=== PATIENT | male | born 1970 | race Hispanic/Latino ===

== ENCOUNTER 2016-12-07 08:06 | Inpatient (IN) | payer MEDICAID ==
[2016-12-07 09:30] LABS: BASO # 0.1 K/uL (0.0-0.2); BASO % 0.9 % (0.0-2.0); EOS # 0.3 K/uL (0.0-0.7); EOS % 3.7 % (0.0-4.0); HEMATOCRIT 39.9 % (35.0-51.0); LYMPH # 1.8 K/uL (1.0-4.3); LYMPH % 24.2 % (20.0-40.0); MEAN CELL VOLUME 97.2 fL (80.0-94.0); MEAN CORPUSCULAR HEMOGLOBIN 33.5 pg (27.0-31.0); MEAN CORPUSCULAR HGB CONC 34.5 g/dL (33.0-37.0); MEAN PLATELET VOLUME 7.5 fL (7.2-11.7); MONO # 0.6 K/uL (0.0-0.8); MONO % 8.9 % (0.0-10.0); RED CELL DISTRIBUTION WIDTH 13.6 % (11.5-14.5); WHITE BLOOD COUNT 7.3 K/uL (4.8-10.8)
[2016-12-07 09:34] LABS: CHLORIDE 101 mmol/L (98-107); POTASSIUM 4.4 mmol/L (3.6-5.2); SODIUM 140 mmol/L (132-148)
[2016-12-07 09:34] LABS: RBC URINE 6 /hpf (0-3); URINE BILIRUBIN 1+ (NEGATIVE); URINE BLOOD NEGATIVE (NEGATIVE); URINE COLOR Amber (YELLOW); URINE GLUCOSE (UA) NORMAL (Normal); URINE KETONE TRACE mg/dL (NEGATIVE); URINE LEUKOCYTE ESTERASE NEG Leu/uL (Negative); URINE PROTEIN 1+ mg/dL (NEGATIVE); WBC URINE < 1 /hpf (0-5)
[2016-12-07 09:36] LABS: ALB/GLOB RATIO 1.3 (1.0-2.1); AST/SGOT 33 U/L (17-59); BILIRUBIN,TOTAL 0.9 mg/dL (0.2-1.3); CARBON DIOXIDE 24 mmol/L (22-30); GFR AFRICAN-AMERICAN > 60; TOTAL PROTEIN 7.1 g/dL (6.3-8.3)
[2016-12-07 09:37] LABS: ALKALINE PHOSPHATASE 50 U/L (38-126); ALT/SGPT 54 U/L (21-72); BLOOD UREA NITROGEN 11 mg/dL (9-20); CALCIUM 8.9 mg/dl (8.6-10.4); GLUCOSE,RANDOM 84 mg/dL (75-110)
[2016-12-07 09:38] LABS: INR 1.1
--- NOTE | 2016-12-07 10:39 | C.PDOC ---
History Of Present Illness 46 y/o male with Hx of DVT presents to ed with complaints of "deep" pain to calf of left leg since yesterday morning. Patient states x3 years ago he had DVT to same leg and was on Coumadin but was taken off and denies currently taking blood thinners. Patient denies SOB/Chest pain, recent injury, numbness, weakness or any other complaints at this time. Chief Complaint (Nursing): Lower Extremity Problem/Injury History Per: Patient History/Exam Limitations: no limitations Onset/Duration Of Symptoms: Days Current Symptoms Are (Timing): Still Present Past Medical History Reviewed: Historical Data, Nursing Documentation, Vital Signs Vital Signs: Last Vital Signs Temp 98.4 F 12/07/16 16:00 Pulse 72 12/07/16 16:00 Resp 20 12/07/16 16:00 BP 103/65 12/07/16 16:00 Pulse Ox 96 12/07/16 16:00 - Medical History PMH: No Chronic Diseases, Depression, Deep Vein Thrombosis Surgical History: No Surg Hx Family History: States: No Known Family Hx - Social History Hx Alcohol Use: No Hx Substance Use: No - Immunization History Hx Tetanus Toxoid Vaccination: No Hx Influenza Vaccination: No Hx Pneumococcal Vaccination: No Review Of Systems Except As Marked, All Systems Reviewed And Found Negative. Constitutional: Negative for: Fever, Chills Musculoskeletal: Positive for: Leg Pain. Negative for: Foot Pain Skin: Negative for: Rash Neurological: Negative for: Weakness, Numbness Physical Exam - Physical Exam Appears: Non-toxic, No Acute Distress Skin: Warm, Dry, No Rash Head: Atraumatic, Normacephalic Oral Mucosa: Moist Neck: Normal ROM, Supple Chest: Symmetrical Cardiovascular: Rhythm Regular, No Edema Respiratory: Normal Breath Sounds, No Accessory Muscle Use Gastrointestinal/Abdominal: Soft, No Tenderness Extremity: Calf Tenderness (left), Capillary Refill (<2 seconds), No Deformity, Swelling (mild, left), Other (Varicose veins to lower extremities) Extremity: Bilateral: Normal ROM Pulses: Left Dorsalis Pedis: Normal, Right Dorsalis Pedis: Normal Neurological/Psych: Oriented x3, Normal Speech, Normal Cognition, Normal Motor, Normal Sensation ED Course And Treatment - Laboratory Results Result Diagrams: 12/07/16 09:22 12/07/16 09:22 O2 Sat by Pulse Oximetry: 99 (RA) Pulse Ox Interpretation: Normal Progress Note: Blood work, UA, Duplex to r/o DVT positive for Left distal femoral and popliteal DVT. Heparin bolus and heparin drip ordered. Case was d/w who accepted patient to his service for admission. Disposition - Disposition Disposition: HOSPITALIZED Disposition Time: 12:06 Condition: FAIR - Clinical Impression Clinical Impression: Deep venous thrombosis of lower extremity - PA / TECHNICAL ADMINISTRATOR / Resident Statement MD/DO has reviewed & agrees with the documentation as recorded. - Scribe Statement The provider has reviewed the documentation as recorded by the Palibleonel Luciano All medical record entries made by the Ryan were at my direction and personally dictated by me. I have reviewed the chart and agree that the record accurately reflects my personal performance of the history, physical exam, medical decision making, and the department course for this patient. I have also personally directed, reviewed, and agree with the discharge instructions and disposition. Decision To Admit - Pt Status Changed To: Hospital Disposition Of: Inpatient - Admit Certification Admit to Inpatient:: After my assessment, the patient will require hospitalization for at least two midnights. This is because of the severity of symptoms shown, intensity of services needed, and/or the medical risk in this patient being treated as an outpatient. - InPatient: Physician Admission Certification: I certify that this patient requires 2 or more midnights of care for the following reason:: Patient needs more than 2 days of anticioagulation - . Bed Request Type: Regular Admitting Physician: Annita Todd Patient Diagnosis: Deep venous thrombosis of lower extremity
[2016-12-07] MEDS ORDERED: Heparin 25,000units in D5W 250 ML IV ONE (10:54)
[2016-12-07] MEDS ORDERED: Heparin25000 units/250ml 1/2NS 25,000 UNITS/250 ML BAG IV ONE (11:30)
--- NOTE | 2016-12-07 13:47 | VASCLAB ---
PROCEDURE: Lower Extremity Venous Duplex Exam. HISTORY: Left leg pain, calf tenderness PRIORS: None. TECHNIQUE: Bilateral common femoral, femoral, popliteal and posterior tibial, peroneal and great saphenous veins were evaluated. Flow was assessed with color Doppler, compressibility, assessment of phasic flow and augmentation response. Report prepared by JERI Schofield FINDINGS: RIGHT: 1. Common Femoral Vein: 1.1. Compressibility - Fully compressible: Thrombus - None : Flow - Phasic: Augmentation -Normal: Reflux - None. 2. Femoral Vein: 2.1. Compressibility - Fully compressible: Thrombus - None : Flow - Phasic: Augmentation -Normal: Reflux - None. 3. Popliteal Vein: 3.1. Compressibility - Fully compressible: Thrombus - None : Flow - Phasic: Augmentation -Normal: Reflux - None. 4. Posterior Tibial Vein: 4.1. Compressibility - Fully compressible: Thrombus - None: Flow - Phasic: Augmentation -Normal: Reflux - None. 5. Peroneal Vein: 5.1. Compressibility - Fully compressible: Thrombus - None: Flow - Phasic: Augmentation -Normal: Reflux - None. 6. Great Saphenous Vein: 6.1. Compressibility - Fully compressible: Thrombus - None: Flow - Phasic: Augmentation - Normal: Reflux - None. LEFT: 1. Common Femoral Vein: 1.1. Compressibility - Fully compressible: Thrombus - None: Flow - Phasic: Augmentation -Normal: Reflux - None. 2. Femoral Vein: (non compressible at the distal segment only) 2.1. Compressibility - Incompressible: Thrombus - Acute: Flow - Absent : Augmentation -None: Reflux - None. 3. Popliteal Vein: 3.1. Compressibility - Incompressible: Thrombus - Acute : Flow - Absent : Augmentation -None: Reflux - None. 4. Posterior Tibial Vein: 4.1. Compressibility - Fully compressible: Thrombus - None: Flow - Phasic: Augmentation -Normal: Reflux - None. 5. Peroneal Vein: 5.1. Compressibility - Fully compressible: Thrombus - None: Flow - Phasic: Augmentation -Normal: Reflux - None. 6. Great Saphenous Vein: 6.1. Compressibility - Fully compressible: Thrombus - None: Flow - Phasic: Augmentation - Normal: Reflux - None. OTHER FINDINGS: One of the left gastrocnemius veins, was non compressible. IMPRESSION: Right: No evidence of deep or superficial vein thrombosis of the right lower extremity. Normal valve function noted of the right side. Left: Acute deep vein thrombosis of the left distal femoral, one gastrocnemius and the popliteal veins, with severe reduction of the venous return.
--- NOTE | 2016-12-07 14:04 | CP.PCM.HP ---
History of Present Illness - History of Present Illness History of Present Illness: COMPREHENSIVE HISTORY & PHYSICAL EXAM HPI 46 y/o male with Hx of DVT presents to ed with complaints of "deep" pain to half of left leg since yesterday morning. Patient states x3 years ago he had DVT to same leg and was on Coumadin but was taken off and denies currently taking blood thinners. Patient denies recent injury, numbness, weakness or any other complaints at this time. PAST HIST. PERSONAL HIST: Smoking. N Alcohol. N Allergy N Travel_- . FAMILY HIST : ROS : Constitutional: Negative for weight change, chills, night sweats, fatigue and usage of assist device. Eyes: Negative for redness, swelling, itching, discharge, vision changes, blurry vision, double vision, glaucoma, cataracts, Ears: Negative for hearing loss, ringing, , tinnitus, vertigo Nose: Negative for rhinorrhea, stuffiness, sniffing, itching, postnasal drip, discoloration, nasal congestion and epistaxis. Throat: Negative for throat clearing, sore throat, hoarseness, difficulty swallowing and difficulty speaking. Respiratory: Negative for cough, , sputum production, chest tightness, wheezing, pleuritic chest pain ,daytime somnolence, chronic cough, hemoptysis, snoring at night, Cardiovascular: Negative for chest pain, palpitations, orthopnea, PND, Edema of legs, leg cramps, angina, claudication, , irregular heartbeat, Neurology: Negative for irritability, muscle weakness, numbness and tingling, seizures, tremors, migraines, slurred speech, syncope, memory loss, mood changes , recurrent headaches Gastrointestinal: Negative for difficulty swallowing, diarrhea, constipation, black stools, rectal bleeding, nausea, flatulence, reflux, poor appetite, changes in bowel habits, abdominal pain Genitourinary: Negative for frequent urination, hematuria, discharge, incontinence, urinary retention, frequent UTI, Psychiatric: Negative for depression, anxiety/panic, suicidal tendencies, Musculoskeletal: Negative for swollen joints, back pain, , neck pain, morning stiffness of joints, . Skin: Negative for rash, ulcers, itching, dry skin and pigmented lesions. P/E: Constitutional: Appears stated age and in no apparent distress. Head: Normocephalic. Ears: External ear canals patent without inflammation. Tympanic membranes intact with normal light reflex and landmark. Eyes: Pupils are central, bilaterally equal, symmetrical and reacts to light with normal movements and no icterus or pallor. Nose: External nares are patent. Mucosa is pink Mouth-Throat: Good general appearance and condition. No post-pharyngeal/oropharyngeal erythema and tonsillar hypertrophy. Good dental hygiene. Neck-Lymphatic: Neck is supple with normal ROM, no thyromegaly, lymph nodes or masses. JVD is normal with no carotid bruit. Lungs: Clear to percussion and auscultation with bilateral normal air entry. Cardiovascular: S1 and S2 are normal with no murmurs, gallops and rub. GI Exam: No hepatomegaly. Abdomen is soft and non-tender. No Organomegaly , masses or hernias are evident and bowel sounds are normal and active. Neurology: Higher function and all cranial nerves intact, with no gross motor or sensory deficit. Superficial and deep reflexes are normal with downwards planters. No cerebellar deficit with normal gait. Musculoskeletal: No tender spots with normal curvature of the spine with no swelling or restricted ROM of the small and large joints. Extremities: Homans sign absent.pos with calf tenderness Skin: No rash, eruptions or abnormal skin pigmentation LAB/RADIOLOGY: ASSESMENT : LEFT LEG RECURRENT DVT PLAN: IV HEPARIN AND COUMADIN Present on Admission - Present on Admission Any Indicators Present on Admission: No History of DVT/PE: Yes History of Uncontrolled Diabetes: No Urinary Catheter: No Decubitus Ulcer Present: No Past Patient History - Past Social History Smoking Status: Heavy Smoker > 10 Cigarettes Daily - CARDIAC Hx Peripheral Vascular Disease: Yes - PSYCHIATRIC Hx Depression: Yes Hx Substance Use: No - SURGICAL HISTORY Hx Surgeries: Yes Hx Orthopedic Surgery: Yes (right knee) - ANESTHESIA Hx Anesthesia: Yes Hx Anesthesia Reactions: No Meds Allergies/Adverse Reactions: Allergies Allergy/AdvReac Type Severity Reaction Status Date / Time No Known Allergies Allergy Verified 12/07/16 08:31 Results - Vital Signs Recent Vital Signs: Last Vital Signs Temp 97.7 F 12/07/16 12:26 Pulse 66 12/07/16 12:26 Resp 20 12/07/16 12:26 BP 101/65 12/07/16 12:26 Pulse Ox 97 12/07/16 12:26 - Labs Result Diagrams: 12/07/16 09:22 12/07/16 09:22 Labs: Laboratory Results - last 24 hr 12/07/16 12/07/16 12/07/16 09:22 09:22 09:22 WBC 7.3 RBC 4.10 L Hgb 13.7 Hct 39.9 MCV 97.2 H MCH 33.5 H MCHC 34.5 RDW 13.6 Plt Count 197 MPV 7.5 Neut % (Auto) 62.3 Lymph % (Auto) 24.2 [place] % (Auto) 8.9 Eos % (Auto) 3.7 Baso % (Auto) 0.9 Neut # 4.5 Lymph # 1.8 Sandoval # 0.6 Eos # 0.3 Baso # 0.1 PT 12.1 INR 1.1 APTT 28 Sodium 140 Potassium 4.4 Chloride 101 Carbon Dioxide 24 Anion Gap 19 BUN 11 Creatinine 0.9 Est GFR ( Amer) > 60 Est GFR (Non-Af Amer) > 60 Random Glucose 84 Calcium 8.9 Total Bilirubin 0.9 AST 33 ALT 54 Alkaline Phosphatase 50 Total Protein 7.1 Albumin 4.0 Globulin 3.1 Albumin/Globulin Ratio 1.3 Urine Color Urine Clarity Urine pH Ur Specific [place] Urine Protein Urine Glucose (UA) Urine Ketones Urine Blood Urine Nitrate Urine Bilirubin Urine Urobilinogen Ur Leukocyte Esterase Urine WBC (Auto) Urine RBC (Auto) 12/07/16 09:26 WBC RBC Hgb Hct MCV MCH MCHC RDW Plt Count MPV Neut % (Auto) Lymph % (Auto) [place] % (Auto) Eos % (Auto) Baso % (Auto) Neut # Lymph # [place] # Eos # Baso # PT INR APTT Sodium Potassium Chloride Carbon Dioxide Anion Gap BUN Creatinine Est GFR ( Amer) Est GFR (Non-Af Amer) Random Glucose Calcium Total Bilirubin AST ALT Alkaline Phosphatase Total Protein Albumin Globulin Albumin/Globulin Ratio Urine Color Vivian Urine Clarity Clear Urine pH 5.0 Ur Specific [place] 1.032 H Urine Protein 1+ H Urine Glucose (UA) Normal Urine Ketones Trace Urine Blood Negative Urine Nitrate Negative Urine Bilirubin 1+ H Urine Urobilinogen 4.0 Ur Leukocyte Esterase Neg Urine WBC (Auto) < 1 Urine RBC (Auto) 6 H
[2016-12-08] MEDS: Heparin25000 units/250ml 1/2NS 25,000 UNITS/250 ML BAG IV PRN ×2 (04:46→19:02)
[2016-12-08 09:15] LABS: HEMATOCRIT 40.9 % (35.0-51.0); MEAN CELL VOLUME 97.7 fL (80.0-94.0); MEAN CORPUSCULAR HEMOGLOBIN 33.7 pg (27.0-31.0); MEAN CORPUSCULAR HGB CONC 34.5 g/dL (33.0-37.0); MEAN PLATELET VOLUME 7.4 fL (7.2-11.7); RED CELL DISTRIBUTION WIDTH 13.6 % (11.5-14.5); WHITE BLOOD COUNT 6.8 K/uL (4.8-10.8)
--- NOTE | 2016-12-08 10:43 | CP.PCM.CON ---
<ErnstmaximeElvi TalhaPrincess - Last Filed: 12/08/16 12:11> History of Present Illness - History of Present Illness History of Present Illness: Patient is a 46 year old male with past medical history of DVT and depression, presents to the ED yesterday with deep pain in the left calf for 3 days. He reports he has not been bedridden, traveling, or any change in his regular schedule. Patient reports he had a DVT in the left calf 4-5 years ago and was treated with Coumadin for several months. He reports the current pain feels similar to the pain he had with the DVT years ago. Patient denies having any hematologic disorders. Patient denies having chest pain, abdominal pain, nausea , vomiting, diarrhea, and fevers. PMD: Dr. Darnell PMHx: DVT (4-5 years ago), Depression SurgHx: right knee arthroscopic surgery 2009 Heme: denies personal and family history of hematologic disorders FamHx: denies SocHx: Smokes 1 ppd for 20+ years; former heavy alcohol abusers (quit 08/2016); denies drug uses; not currently employed. Allergies: NKDA Medication: Latuda Review of Systems - Constitutional Constitutional: absent: Headache - EENT Ears: absent: Dizziness - Cardiovascular Cardiovascular: absent: Chest Pain, Dyspnea, Lightheadedness - Respiratory Respiratory: absent: Cough, Dyspnea - Gastrointestinal Gastrointestinal: absent: Abdominal Pain, Constipation, Diarrhea, Nausea, Vomiting - Musculoskeletal Additional comments: Left calf pain and tenderness. - Neurological Neurological: absent: Dizziness Past Patient History - Past Medical History & Family History Past Medical History?: Yes - Past Social History Smoking Status: Heavy Smoker > 10 Cigarettes Daily - CARDIAC Hx Peripheral Vascular Disease: Yes - MUSCULOSKELETAL/RHEUMATOLOGICAL Hx Falls: No - PSYCHIATRIC Hx Depression: Yes Hx Substance Use: No - SURGICAL HISTORY Hx Surgeries: Yes Hx Orthopedic Surgery: Yes (right knee) - ANESTHESIA Hx Anesthesia: Yes Hx Anesthesia Reactions: No Meds Allergies/Adverse Reactions: Allergies Allergy/AdvReac Type Severity Reaction Status Date / Time No Known Allergies Allergy Verified 12/07/16 08:31 - Medications Medications: Current Medications Acetaminophen (Tylenol 325mg Tab) 650 mg PO Q6 PRN PRN Reason: Pain, moderate (4-7) Last Admin: 12/08/16 08:22 Dose: 650 mg Heparin Sodium/Sodium Chloride (Heparin 67690 Units/250ml 1/2 Normal Saline) 25 ,000 units in 250 mls @ 18.779 mls/hr IV .[id number] PRN; Protocol; 18 UNITS/KG/HR PRN Reason: ADJUST RATE PER PROTOCOL Last Admin: 12/08/16 04:46 Dose: 18 units/kg/hr, 18.779 mls/hr Physical Exam - Head Exam Head Exam: ATRAUMATIC, NORMAL INSPECTION - Eye Exam Eye Exam: EOMI - ENT Exam ENT Exam: Mucous Membranes Moist - Respiratory Exam Respiratory Exam: Clear to Auscultation Bilateral, NORMAL BREATHING PATTERN. absent: Rhonchi, Wheezes, Respiratory Distress - Cardiovascular Exam Cardiovascular Exam: REGULAR RHYTHM, +S1, +S2 - GI/Abdominal Exam GI & Abdominal Exam: Normal Bowel Sounds, Soft. absent: Tenderness - Extremities Exam Extremities exam: Positive for: calf tenderness (Left LE), tenderness (Left LE) , pedal pulses present. Negative for: pedal edema - Neurological Exam Neurological exam: Alert, Oriented x3 - Psychiatric Exam Psychiatric exam: Normal Affect, Normal Mood - Skin Skin Exam: Dry, Intact, Normal Color, Warm Results - Vital Signs Recent Vital Signs: Last Vital Signs Temp 98 F 12/08/16 07:14 Pulse 69 12/08/16 07:14 Resp 21 12/08/16 07:14 BP 100/66 12/08/16 07:14 Pulse Ox 97 12/08/16 07:14 - Labs Result Diagrams: 12/08/16 09:10 12/07/16 09:22 Labs: Laboratory Results - last 24 hr 12/07/16 12/08/16 12/08/16 20:03 02:42 09:10 WBC 6.8 RBC 4.19 L Hgb 14.1 Hct 40.9 MCV 97.7 H MCH 33.7 H MCHC 34.5 RDW 13.6 Plt Count 204 MPV 7.4 APTT 80 H D 76 H 12/08/16 09:10 WBC RBC Hgb Hct MCV MCH MCHC RDW Plt Count MPV APTT 59 H D Assessment & Plan (1) Deep venous thrombosis of lower extremity Assessment and Plan: Inherited thrombophilia workup, follow up results. Continue therapeutic anticoagulation. Status: Acute (2) Tobacco abuse Assessment and Plan: Smoking cessation discussed at length. Status: Acute <Delvin Turpin - Last Filed: 12/12/16 19:33> Meds - Medications Medications: Current Medications Acetaminophen (Tylenol 325mg Tab) 650 mg PO Q6 PRN PRN Reason: Pain, moderate (4-7) Last Admin: 12/09/16 06:28 Dose: 650 mg Heparin Sodium/Sodium Chloride (Heparin 91053 Units/250ml 1/2 Normal Saline) 25 ,000 units in 250 mls @ 18.779 mls/hr IV .[id number] PRN; Protocol; 18 UNITS/KG/HR PRN Reason: PROTOCOL Last Admin: 12/12/16 18:20 Dose: 18 units/kg/hr, 18.779 mls/hr Results - Vital Signs Recent Vital Signs: Last Vital Signs Temp 97.5 F L 12/12/16 15:10 Pulse 66 12/12/16 15:10 Resp 20 12/12/16 15:10 BP 103/70 12/12/16 15:10 Pulse Ox 97 12/12/16 15:10 - Labs Result Diagrams: 12/09/16 08:17 12/07/16 09:22 Labs: Laboratory Results - last 24 hr 12/12/16 06:14 PT 13.1 H INR 1.2 Assessment & Plan - Assessment and Plan (Free Text) Assessment: Pt seen and examined, agree with residents consult. Pt admitted with unprovoked LLE DVT. He has a history of unprovoked DVT in the past that was treated with 6 months of anticoagulation. Given his age, I will plan to send off an inherited thrombophilia w/u. He should remain on therapeutic anticoagulation for life. Thank you for this interesting consult.
--- NOTE | 2016-12-08 11:08 | CARD ---
APPROVED REPORT EXAM: Two-dimensional and M-mode echocardiogram with Doppler and color Doppler. Other Information Quality : GoodRhythm : NSR RISK FACTORS Smoking 2D DIMENSIONS IVSd0.9 (0.7-1.1cm)LVDd5.6 (3.9-5.9cm) PWd0.9 (0.7-1.1cm)LVDs3.7 (2.5-4.0cm) FS (%) 33.5 %LVEF (%)61.6 (>50%) M-Mode DIMENSIONS Left Atrium (MM)3.93 (2.5-4.0cm)Aortic Root4.16 (2.2-3.7cm) Aortic Cusp Exc.2.82 (1.5-2.0cm) Mitral Valve MV E Ycwuftrg91.2cm/sMV A Qryywnbg86.0cm/sE/A ratio0.9 TDI E/Lateral E'0.0E/Medial E'0.0 Tricuspid Valve TR Peak Zptwcipa131hd/sTR Peak Gr.25obRzHQQQ70enLb LEFT VENTRICLE The left ventricle is normal size. There is normal left ventricular wall thickness. The left ventricular function is normal. The left ventricular ejection fraction is within the normal range. No regional wall motion abnormalities noted. The left ventricular diastolic function is normal. No left ventricle thrombus noted on this study. There is no ventricular septal defect visualized. There is no left ventricular aneurysm. There is no mass noted in the left ventricle. RIGHT VENTRICLE The right ventricle is normal size. There is normal right ventricular wall thickness. The right ventricular systolic function is normal. ATRIA The left atrium size is normal. The right atrium size is normal. The interatrial septum is intact with no evidence for an atrial septal defect. AORTIC VALVE The aortic valve is normal in structure and function. No aortic regurgitation is present. There is no aortic valvular stenosis. There is no aortic valvular vegetation. MITRAL VALVE The mitral valve is normal in structure and function. There is no evidence of mitral valve prolapse. There is no mitral valve stenosis. Mitral regurgitation is mild. TRICUSPID VALVE The tricuspid valve is normal in structure and function. There is mild tricuspid regurgitation. Right ventricular systolic pressure is estimated at 30-40 mmHg. There is no tricuspid valve prolapse or vegetation. There is no tricuspid valve stenosis. PULMONIC VALVE The pulmonary valve is normal in structure and function. There is no pulmonic valvular regurgitation. There is no pulmonic valvular stenosis. GREAT VESSELS The aortic root is normal in size. The ascending aorta is normal in size. The pulmonary artery is normal. The IVC is normal in size and collapses >50% with inspiration. PERICARDIAL EFFUSION The pericardium appears normal. There is no pleural effusion. <Conclusion> The left ventricular function is normal. The left ventricular ejection fraction is within the normal range. No regional wall motion abnormalities noted. Mitral regurgitation is mild. There is mild tricuspid regurgitation. Right ventricular systolic pressure is estimated at 30-40 mmHg.
--- NOTE | 2016-12-08 13:36 | CP.PCM.PN ---
Subjective - Date & Time of Evaluation Date of Evaluation: 12/08/16 Time of Evaluation: 13:35 - Subjective Subjective: PAIN LEFT CALF VS STABLE O/E LEFT CALF SWOLLEN WITH POS BHARATHI'S SIGN ECHO MILD PTH CONT IV HEPARIN Objective - Vital Signs/Intake and Output Vital Signs (last 24 hours): Temp Pulse Resp BP Pulse Ox 98 F 69 21 100/66 97 12/08/16 07:14 12/08/16 07:14 12/08/16 07:14 12/08/16 07:14 12/08/16 07:14 Intake and Output: 12/08/16 12/08/16 11:59 23:59 Intake Total 331.6 Output Total 800 Balance -468.4 - Medications Medications: Current Medications Acetaminophen (Tylenol 325mg Tab) 650 mg PO Q6 PRN PRN Reason: Pain, moderate (4-7) Last Admin: 12/08/16 08:22 Dose: 650 mg Heparin Sodium/Sodium Chloride (Heparin 43445 Units/250ml 1/2 Normal Saline) 25 ,000 units in 250 mls @ 18.779 mls/hr IV .[id number] PRN; Protocol; 18 UNITS/KG/HR PRN Reason: ADJUST RATE PER PROTOCOL Last Admin: 12/08/16 04:46 Dose: 18 units/kg/hr, 18.779 mls/hr - Labs Labs: 12/08/16 09:10 12/07/16 09:22 PT 12.1 SECONDS (9.7-12.2) 12/07/16 09:22 INR 1.1 12/07/16 09:22 APTT 59 SECONDS (21-34) H D 12/08/16 09:10
[2016-12-09 08:42] LABS: BASO # 0.1 K/uL (0.0-0.2); EOS # 0.2 K/uL (0.0-0.7); EOS % 2.8 % (0.0-4.0); HEMATOCRIT 40.2 % (35.0-51.0); LYMPH # 1.8 K/uL (1.0-4.3); LYMPH % 24.7 % (20.0-40.0); MEAN CORPUSCULAR HEMOGLOBIN 34.1 pg (27.0-31.0); MEAN CORPUSCULAR HGB CONC 35.8 g/dL (33.0-37.0); MEAN PLATELET VOLUME 7.8 fL (7.2-11.7); MONO # 0.7 K/uL (0.0-0.8); MONO % 9.3 % (0.0-10.0); RED CELL DISTRIBUTION WIDTH 13.4 % (11.5-14.5); WHITE BLOOD COUNT 7.2 K/uL (4.8-10.8)
[2016-12-09 08:46] LABS: MEAN CELL VOLUME 95.3 fL (80.0-94.0)
[2016-12-09] MEDS: Heparin25000 units/250ml 1/2NS 25,000 UNITS/250 ML BAG IV PRN ×2 (09:00→22:54)
--- NOTE | 2016-12-09 14:00 | CP.PCM.PN ---
Subjective - Date & Time of Evaluation Date of Evaluation: 12/09/16 Time of Evaluation: 14:00 - Subjective Subjective: PAIN LEFT CALF VS STABLE O/E LEFT CALF SWOLLEN WITH POS BHARATHI'S SIGN ECHO MILD PTH CONT IV HEPARIN Objective - Vital Signs/Intake and Output Vital Signs (last 24 hours): Temp Pulse Resp BP Pulse Ox 98.1 F 68 20 97/63 L 97 12/09/16 07:44 12/09/16 07:44 12/09/16 07:44 12/09/16 07:44 12/09/16 07:44 Intake and Output: 12/09/16 12/09/16 11:59 23:59 Intake Total 600.4 Output Total 900 Balance -299.6 - Medications Medications: Current Medications Acetaminophen (Tylenol 325mg Tab) 650 mg PO Q6 PRN PRN Reason: Pain, moderate (4-7) Last Admin: 12/09/16 06:28 Dose: 650 mg Heparin Sodium/Sodium Chloride (Heparin 30250 Units/250ml 1/2 Normal Saline) 25 ,000 units in 250 mls @ 18.779 mls/hr IV .[id number] PRN; Protocol; 18 UNITS/KG/HR PRN Reason: ADJUST RATE PER PROTOCOL Last Admin: 12/09/16 09:00 Dose: 18 units/kg/hr, 18.779 mls/hr - Labs Labs: 12/09/16 08:17 12/07/16 09:22 PT 12.1 SECONDS (9.7-12.2) 12/07/16 09:22 INR 1.1 12/07/16 09:22 APTT 64 SECONDS (21-34) H D 12/09/16 08:17
[2016-12-10] MEDS: Heparin25000 units/250ml 1/2NS 25,000 UNITS/250 ML BAG IV PRN (12:45)
--- NOTE | 2016-12-10 14:41 | CP.PCM.PN ---
Subjective - Date & Time of Evaluation Date of Evaluation: 12/10/16 Time of Evaluation: 14:40 - Subjective Subjective: AFEBRILE VS STABLE LEFT CALF SWOLLEN ADD COUMADIN Objective - Vital Signs/Intake and Output Vital Signs (last 24 hours): Temp Pulse Resp BP Pulse Ox 98.2 F 65 20 96/61 L 96 12/10/16 08:00 12/10/16 08:00 12/10/16 08:00 12/10/16 08:00 12/10/16 08:00 Intake and Output: 12/10/16 12/10/16 11:59 23:59 Intake Total 350.4 250 Balance 350.4 250 - Medications Medications: Current Medications Acetaminophen (Tylenol 325mg Tab) 650 mg PO Q6 PRN PRN Reason: Pain, moderate (4-7) Last Admin: 12/09/16 06:28 Dose: 650 mg Heparin Sodium/Sodium Chloride (Heparin 57932 Units/250ml 1/2 Normal Saline) 25 ,000 units in 250 mls @ 18.779 mls/hr IV .[id number] PRN; Protocol; 18 UNITS/KG/HR PRN Reason: ADJUST RATE PER PROTOCOL Last Admin: 12/10/16 12:45 Dose: 18 units/kg/hr, 18.779 mls/hr Warfarin Sodium (Coumadin) 7.5 mg PO 1800 GUS Stop: 12/10/16 18:01 - Labs Labs: 12/09/16 08:17 12/07/16 09:22 PT 12.1 SECONDS (9.7-12.2) 12/07/16 09:22 INR 1.1 12/07/16 09:22 APTT 60 SECONDS (21-34) H 12/10/16 09:05
[2016-12-11] MEDS: Heparin25000 units/250ml 1/2NS 25,000 UNITS/250 ML BAG IV PRN ×2 (00:49→14:12)
[2016-12-11 07:30] LABS: INR 1.1
[2016-12-11] MEDS ORDERED: Heparin25000 units/250ml 1/2NS 25,000 UNITS/250 ML BAG IV PRN (08:04)
--- NOTE | 2016-12-11 12:52 | CP.PCM.PN ---
Subjective - Date & Time of Evaluation Date of Evaluation: 12/11/16 Time of Evaluation: 12:52 - Subjective Subjective: AFEBRILE VS STABLE LEFT CALF SWOLLEN ADD COUMADIN Objective - Vital Signs/Intake and Output Vital Signs (last 24 hours): Temp Pulse Resp BP Pulse Ox 97.7 F 77 20 101/65 97 12/11/16 08:05 12/11/16 08:05 12/11/16 08:05 12/11/16 08:05 12/11/16 08:05 Intake and Output: 12/11/16 12/11/16 11:59 23:59 Intake Total 250 Balance 250 - Medications Medications: Current Medications Acetaminophen (Tylenol 325mg Tab) 650 mg PO Q6 PRN PRN Reason: Pain, moderate (4-7) Last Admin: 12/09/16 06:28 Dose: 650 mg Heparin Sodium/Sodium Chloride (Heparin 72079 Units/250ml 1/2 Normal Saline) 25 ,000 units in 250 mls @ 18.779 mls/hr IV .[id number] PRN; Protocol; 18 UNITS/KG/HR PRN Reason: PROTOCOL - Labs Labs: 12/09/16 08:17 12/07/16 09:22 PT 12.2 SECONDS (9.7-12.2) 12/11/16 07:07 INR 1.1 12/11/16 07:07 APTT 66 SECONDS (21-34) H D 12/11/16 07:07
[2016-12-12] MEDS: Heparin25000 units/250ml 1/2NS 25,000 UNITS/250 ML BAG IV PRN ×2 (03:42→18:20)
[2016-12-12 06:32] LABS: INR 1.2
--- NOTE | 2016-12-12 13:31 | CP.PCM.PN ---
Subjective - Date & Time of Evaluation Date of Evaluation: 12/12/16 Time of Evaluation: 13:31 - Subjective Subjective: AFEBRILE VS STABLE LEFT CALF SWOLLEN ADD COUMADIN Objective - Vital Signs/Intake and Output Vital Signs (last 24 hours): Temp Pulse Resp BP Pulse Ox 97.8 F 61 20 100/64 97 12/12/16 08:03 12/12/16 08:03 12/12/16 08:03 12/12/16 08:03 12/12/16 08:03 Intake and Output: 12/12/16 12/12/16 11:59 23:59 Intake Total 550.4 Output Total 600 Balance -49.6 - Medications Medications: Current Medications Acetaminophen (Tylenol 325mg Tab) 650 mg PO Q6 PRN PRN Reason: Pain, moderate (4-7) Last Admin: 12/09/16 06:28 Dose: 650 mg Heparin Sodium/Sodium Chloride (Heparin 08486 Units/250ml 1/2 Normal Saline) 25 ,000 units in 250 mls @ 18.779 mls/hr IV .[id number] PRN; Protocol; 18 UNITS/KG/HR PRN Reason: PROTOCOL Last Admin: 12/12/16 03:42 Dose: 18 units/kg/hr, 18.779 mls/hr Warfarin Sodium (Coumadin) 10 mg PO 1800 GUS Stop: 12/12/16 18:01 - Labs Labs: 12/09/16 08:17 12/07/16 09:22 PT 13.1 SECONDS (9.7-12.2) H 12/12/16 06:14 INR 1.2 12/12/16 06:14 APTT 66 SECONDS (21-34) H D 12/11/16 07:07
--- NOTE | 2016-12-12 19:37 | CP.PCM.PN ---
Subjective - Date & Time of Evaluation Date of Evaluation: 12/09/16 Time of Evaluation: 16:45 - Subjective Subjective: Has some leg pain, on heparin drip Objective - Vital Signs/Intake and Output Vital Signs (last 24 hours): Temp Pulse Resp BP Pulse Ox 97.5 F L 66 20 103/70 97 12/12/16 15:10 12/12/16 15:10 12/12/16 15:10 12/12/16 15:10 12/12/16 15:10 Intake and Output: 12/12/16 12/13/16 18:59 06:59 Intake Total 850.4 Balance 850.4 - Medications Medications: Current Medications Acetaminophen (Tylenol 325mg Tab) 650 mg PO Q6 PRN PRN Reason: Pain, moderate (4-7) Last Admin: 12/09/16 06:28 Dose: 650 mg Heparin Sodium/Sodium Chloride (Heparin 49006 Units/250ml 1/2 Normal Saline) 25 ,000 units in 250 mls @ 18.779 mls/hr IV .[id number] PRN; Protocol; 18 UNITS/KG/HR PRN Reason: PROTOCOL Last Admin: 12/12/16 18:20 Dose: 18 units/kg/hr, 18.779 mls/hr - Labs Labs: 12/09/16 08:17 12/07/16 09:22 PT 13.1 SECONDS (9.7-12.2) H 12/12/16 06:14 INR 1.2 12/12/16 06:14 APTT 66 SECONDS (21-34) H D 12/11/16 07:07 - Head Exam Head Exam: ATRAUMATIC - Eye Exam Eye Exam: Normal appearance - ENT Exam ENT Exam: Mucous Membranes Dry - Respiratory Exam Respiratory Exam: NORMAL BREATHING PATTERN - Cardiovascular Exam Cardiovascular Exam: +S1, +S2 - GI/Abdominal Exam GI & Abdominal Exam: Normal Bowel Sounds - Extremities Exam Extremities Exam: Pedal Edema Assessment and Plan (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
--- NOTE | 2016-12-12 19:41 | CP.PCM.PN ---
Subjective - Date & Time of Evaluation Date of Evaluation: 12/11/16 Time of Evaluation: 20:05 - Subjective Subjective: Leg swelling and pain improved Objective - Vital Signs/Intake and Output Vital Signs (last 24 hours): Temp Pulse Resp BP Pulse Ox 97.5 F L 66 20 103/70 97 12/12/16 15:10 12/12/16 15:10 12/12/16 15:10 12/12/16 15:10 12/12/16 15:10 Intake and Output: 12/12/16 12/13/16 18:59 06:59 Intake Total 850.4 Balance 850.4 - Medications Medications: Current Medications Acetaminophen (Tylenol 325mg Tab) 650 mg PO Q6 PRN PRN Reason: Pain, moderate (4-7) Last Admin: 12/09/16 06:28 Dose: 650 mg Heparin Sodium/Sodium Chloride (Heparin 37888 Units/250ml 1/2 Normal Saline) 25 ,000 units in 250 mls @ 18.779 mls/hr IV .[id number] PRN; Protocol; 18 UNITS/KG/HR PRN Reason: PROTOCOL Last Admin: 12/12/16 18:20 Dose: 18 units/kg/hr, 18.779 mls/hr - Labs Labs: 12/09/16 08:17 12/07/16 09:22 PT 13.1 SECONDS (9.7-12.2) H 12/12/16 06:14 INR 1.2 12/12/16 06:14 APTT 66 SECONDS (21-34) H D 12/11/16 07:07 - Head Exam Head Exam: ATRAUMATIC - Eye Exam Eye Exam: Normal appearance - ENT Exam ENT Exam: Mucous Membranes Dry - Respiratory Exam Respiratory Exam: NORMAL BREATHING PATTERN - Cardiovascular Exam Cardiovascular Exam: +S1, +S2 - GI/Abdominal Exam GI & Abdominal Exam: Normal Bowel Sounds - Extremities Exam Extremities Exam: Pedal Edema Assessment and Plan (1) 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
--- NOTE | 2016-12-12 19:44 | CP.PCM.PN ---
Subjective - Date & Time of Evaluation Date of Evaluation: 12/12/16 Time of Evaluation: 13:25 - Subjective Subjective: Seen ambulating, pain resolved Objective - Vital Signs/Intake and Output Vital Signs (last 24 hours): Temp Pulse Resp BP Pulse Ox 97.5 F L 66 20 103/70 97 12/12/16 15:10 12/12/16 15:10 12/12/16 15:10 12/12/16 15:10 12/12/16 15:10 Intake and Output: 12/12/16 12/13/16 18:59 06:59 Intake Total 850.4 Balance 850.4 - Medications Medications: Current Medications Acetaminophen (Tylenol 325mg Tab) 650 mg PO Q6 PRN PRN Reason: Pain, moderate (4-7) Last Admin: 12/09/16 06:28 Dose: 650 mg Heparin Sodium/Sodium Chloride (Heparin 68968 Units/250ml 1/2 Normal Saline) 25 ,000 units in 250 mls @ 18.779 mls/hr IV .[id number] PRN; Protocol; 18 UNITS/KG/HR PRN Reason: PROTOCOL Last Admin: 12/12/16 18:20 Dose: 18 units/kg/hr, 18.779 mls/hr - Labs Labs: 12/09/16 08:17 12/07/16 09:22 PT 13.1 SECONDS (9.7-12.2) H 12/12/16 06:14 INR 1.2 12/12/16 06:14 APTT 66 SECONDS (21-34) H D 12/11/16 07:07 - Head Exam Head Exam: ATRAUMATIC - Eye Exam Eye Exam: Normal appearance - ENT Exam ENT Exam: Mucous Membranes Dry - Respiratory Exam Respiratory Exam: NORMAL BREATHING PATTERN - Cardiovascular Exam Cardiovascular Exam: +S1, +S2 - GI/Abdominal Exam GI & Abdominal Exam: Normal Bowel Sounds Assessment and Plan (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
[2016-12-12 23:01] LABS: B2 GLYCOPROTEIN I AB(IGA) <9 SAU (<=20); B2 GLYCOPROTEIN I AB(IGG) <9 SGU (<=20); B2 GLYCOPROTEIN I AB(IGM) <9 SMU (<=20)
[2016-12-13 06:34] LABS: CARDIOLIPIN AB (IGA) <11 APL (<=11)
[2016-12-13 07:42] LABS: INR 1.4
[2016-12-13 08:06] LABS: PHOSPHATIDYLSERINE AB IGA <20 U/mL (<20); PHOSPHATIDYLSERINE AB IGM <25 U/mL (<25)
[2016-12-13] MEDS: Heparin25000 units/250ml 1/2NS 25,000 UNITS/250 ML BAG IV PRN ×2 (08:56→22:53)
--- NOTE | 2016-12-13 13:45 | CP.PCM.PN ---
Subjective - Date & Time of Evaluation Date of Evaluation: 12/13/16 Time of Evaluation: 13:44 - Subjective Subjective: INR SUBTHERAPEUTIC 10 MG COUMADIN AGAIN TODAY Objective - Vital Signs/Intake and Output Vital Signs (last 24 hours): Temp Pulse Resp BP Pulse Ox 98.5 F 60 20 110/69 97 12/13/16 07:44 12/13/16 07:44 12/13/16 07:44 12/13/16 07:44 12/13/16 07:44 Intake and Output: 12/13/16 12/13/16 11:59 23:59 Intake Total 640.4 Output Total 550 Balance 90.4 - Medications Medications: Current Medications Acetaminophen (Tylenol 325mg Tab) 650 mg PO Q6 PRN PRN Reason: Pain, moderate (4-7) Last Admin: 12/09/16 06:28 Dose: 650 mg Heparin Sodium/Sodium Chloride (Heparin 37269 Units/250ml 1/2 Normal Saline) 25 ,000 units in 250 mls @ 18.779 mls/hr IV .[id number] PRN; Protocol; 18 UNITS/KG/HR PRN Reason: PROTOCOL Last Admin: 12/13/16 08:56 Dose: 18 units/kg/hr, 18.779 mls/hr Warfarin Sodium (Coumadin) 10 mg PO 1800 GUS Stop: 12/13/16 18:01 - Labs Labs: 12/09/16 08:17 12/07/16 09:22 PT 16.0 SECONDS (9.7-12.2) H 12/13/16 07:28 INR 1.4 12/13/16 07:28 APTT 88 SECONDS (21-34) H D 12/13/16 07:28
[2016-12-14 07:32] LABS: EOS # 0.3 K/uL (0.0-0.7); LYMPH # 2.1 K/uL (1.0-4.3); WHITE BLOOD COUNT 5.8 K/uL (4.8-10.8)
[2016-12-14 07:33] LABS: INR 1.6
[2016-12-14 07:36] LABS: BASO # 0.2 K/uL (0.0-0.2); BASO % 2.7 % (0.0-2.0); EOS % 5.5 % (0.0-4.0); HEMATOCRIT 43.5 % (35.0-51.0); LYMPH % 36.1 % (20.0-40.0); MEAN CELL VOLUME 94.5 fL (80.0-94.0); MEAN CORPUSCULAR HEMOGLOBIN 33.3 pg (27.0-31.0); MEAN CORPUSCULAR HGB CONC 35.2 g/dL (33.0-37.0); MEAN PLATELET VOLUME 7.4 fL (7.2-11.7); MONO # 0.7 K/uL (0.0-0.8); MONO % 11.2 % (0.0-10.0); NRBC % 0.1 % (0.0-2.0)
[2016-12-14 08:08] LABS: CHLORIDE 98 mmol/L (98-107); POTASSIUM 4.6 mmol/L (3.6-5.2); SODIUM 135 mmol/L (132-148)
[2016-12-14 08:11] LABS: GFR AFRICAN-AMERICAN > 60
[2016-12-14 08:12] LABS: BLOOD UREA NITROGEN 16 mg/dL (9-20); CALCIUM 9.4 mg/dl (8.6-10.4); CARBON DIOXIDE 27 mmol/L (22-30); GLUCOSE,RANDOM 88 mg/dL (75-110)
--- NOTE | 2016-12-14 13:40 | CP.PCM.PN ---
Subjective - Date & Time of Evaluation Date of Evaluation: 12/14/16 Time of Evaluation: 13:40 - Subjective Subjective: LEFT LEG SWOLLEN INR 1.6 COUMADIN 7.5 TODAY Objective - Vital Signs/Intake and Output Vital Signs (last 24 hours): Temp Pulse Resp BP Pulse Ox 97.4 F L 64 20 108/72 97 12/14/16 07:48 12/14/16 07:48 12/14/16 07:48 12/14/16 07:48 12/14/16 07:48 Intake and Output: 12/14/16 12/14/16 11:59 23:59 Intake Total 840.9 Balance 840.9 - Medications Medications: Current Medications Acetaminophen (Tylenol 325mg Tab) 650 mg PO Q6 PRN PRN Reason: Pain, moderate (4-7) Last Admin: 12/09/16 06:28 Dose: 650 mg Heparin Sodium/Sodium Chloride (Heparin 17153 Units/250ml 1/2 Normal Saline) 25 ,000 units in 250 mls @ 15.649 mls/hr IV .[id number] PRN; Protocol; 15 UNITS/KG/HR PRN Reason: PROTOCOL - Labs Labs: 12/14/16 07:14 12/14/16 07:14 PT 17.7 SECONDS (9.7-12.2) H 12/14/16 07:14 INR 1.6 12/14/16 07:14 APTT 108 SECONDS (21-34) H* D 12/14/16 07:14
[2016-12-14] MEDS: Heparin25000 units/250ml 1/2NS 25,000 UNITS/250 ML BAG IV PRN (16:21)
[2016-12-15 00:05] LABS: INR 1.5
[2016-12-15 08:10] LABS: INR 1.6
[2016-12-15] MEDS: Heparin25000 units/250ml 1/2NS 25,000 UNITS/250 ML BAG IV PRN (11:29)
--- NOTE | 2016-12-15 13:52 | CP.PCM.PN ---
Subjective - Date & Time of Evaluation Date of Evaluation: 12/15/16 Time of Evaluation: 13:52 - Subjective Subjective: inr 1.6 coumadin 10 mg tonite no bleeding Objective - Vital Signs/Intake and Output Vital Signs (last 24 hours): Temp Pulse Resp BP Pulse Ox 97.8 F 66 20 108/73 98 12/15/16 07:37 12/15/16 07:37 12/15/16 07:37 12/15/16 07:37 12/15/16 07:37 Intake and Output: 12/15/16 12/15/16 11:59 23:59 Intake Total 614.8 Balance 614.8 - Medications Medications: Current Medications Acetaminophen (Tylenol 325mg Tab) 650 mg PO Q6 PRN PRN Reason: Pain, moderate (4-7) Last Admin: 12/09/16 06:28 Dose: 650 mg Heparin Sodium/Sodium Chloride (Heparin 92248 Units/250ml 1/2 Normal Saline) 25 ,000 units in 250 mls @ 15.649 mls/hr IV .[id number] PRN; Protocol; 15 UNITS/KG/HR PRN Reason: PROTOCOL Last Admin: 12/15/16 11:29 Dose: 15 units/kg/hr, 15.649 mls/hr Warfarin Sodium (Coumadin) 10 mg PO 1800 GUS Stop: 12/15/16 18:01 - Labs Labs: 12/14/16 07:14 12/14/16 07:14 PT 19.0 SECONDS (9.7-12.2) H 12/15/16 07:56 INR 1.6 12/15/16 07:56 APTT 62 SECONDS (21-34) H D 12/15/16 07:56
[2016-12-16] MEDS: Heparin25000 units/250ml 1/2NS 25,000 UNITS/250 ML BAG IV PRN ×2 (03:34→21:48)
[2016-12-16 06:42] LABS: INR 1.8
--- NOTE | 2016-12-16 13:49 | CP.PCM.PN ---
Subjective - Date & Time of Evaluation Date of Evaluation: 12/16/16 Time of Evaluation: 13:49 - Subjective Subjective: NO VISIBLE BLEEDING INR 1.8 10 MG COUMADIN PM Objective - Vital Signs/Intake and Output Vital Signs (last 24 hours): Temp Pulse Resp BP Pulse Ox 98.2 F 62 20 110/71 98 12/16/16 08:12 12/16/16 08:12 12/16/16 08:12 12/16/16 08:12 12/16/16 08:12 Intake and Output: 12/16/16 12/16/16 11:59 23:59 Intake Total 574.8 Balance 574.8 - Medications Medications: Current Medications Acetaminophen (Tylenol 325mg Tab) 650 mg PO Q6 PRN PRN Reason: Pain, moderate (4-7) Last Admin: 12/09/16 06:28 Dose: 650 mg Heparin Sodium/Sodium Chloride (Heparin 40598 Units/250ml 1/2 Normal Saline) 25 ,000 units in 250 mls @ 15.649 mls/hr IV .[id number] PRN; Protocol; 15 UNITS/KG/HR PRN Reason: PROTOCOL Last Admin: 12/16/16 03:34 Dose: 15 units/kg/hr, 15.649 mls/hr - Labs Labs: 12/14/16 07:14 12/14/16 07:14 PT 20.5 SECONDS (9.7-12.2) H 12/16/16 06:23 INR 1.8 12/16/16 06:23 APTT 67 SECONDS (21-34) H D 12/16/16 06:23
[2016-12-17 08:11] LABS: INR 2.2
--- NOTE | 2016-12-17 14:34 | CP.PCM.PN ---
Subjective - Date & Time of Evaluation Date of Evaluation: 12/17/16 Time of Evaluation: 14:33 - Subjective Subjective: inr 2.1 d/c heparin 6 MG COUMADIN IN PM Objective - Vital Signs/Intake and Output Vital Signs (last 24 hours): Temp Pulse Resp BP Pulse Ox 97.9 F 60 20 105/75 95 12/17/16 08:36 12/17/16 08:36 12/17/16 08:36 12/17/16 08:36 12/17/16 08:36 Intake and Output: 12/17/16 12/17/16 11:59 23:59 Intake Total 364.8 Balance 364.8 - Medications Medications: Current Medications Acetaminophen (Tylenol 325mg Tab) 650 mg PO Q6 PRN PRN Reason: Pain, moderate (4-7) Last Admin: 12/09/16 06:28 Dose: 650 mg Warfarin Sodium (Coumadin) 6 mg PO 1800 ONE Stop: 12/17/16 18:01 - Labs Labs: 12/14/16 07:14 12/14/16 07:14 PT 25.6 SECONDS (9.7-12.2) H D 12/17/16 07:54 INR 2.2 12/17/16 07:54 APTT 92 SECONDS (21-34) H D 12/17/16 07:54
--- NOTE | 2016-12-17 22:09 | CP.PCM.PN ---
Subjective - Date & Time of Evaluation Date of Evaluation: 12/13/16 Time of Evaluation: 18:00 - Subjective Subjective: No complaints. Objective - Vital Signs/Intake and Output Vital Signs (last 24 hours): Temp Pulse Resp BP Pulse Ox 97.3 F L 62 20 93/57 L 98 12/17/16 16:00 12/17/16 16:00 12/17/16 16:00 12/17/16 16:00 12/17/16 16:00 Intake and Output: 12/17/16 12/18/16 18:59 06:59 Intake Total 469.2 Balance 469.2 - Medications Medications: Current Medications Acetaminophen (Tylenol 325mg Tab) 650 mg PO Q6 PRN PRN Reason: Pain, moderate (4-7) Last Admin: 12/09/16 06:28 Dose: 650 mg - Labs Labs: 12/14/16 07:14 12/14/16 07:14 PT 25.6 SECONDS (9.7-12.2) H D 12/17/16 07:54 INR 2.2 12/17/16 07:54 APTT 92 SECONDS (21-34) H D 12/17/16 07:54 - Head Exam Head Exam: ATRAUMATIC - Eye Exam Eye Exam: Normal appearance - ENT Exam ENT Exam: Mucous Membranes Dry - Respiratory Exam Respiratory Exam: NORMAL BREATHING PATTERN - Cardiovascular Exam Cardiovascular Exam: +S1, +S2 - GI/Abdominal Exam GI & Abdominal Exam: Normal Bowel Sounds - Extremities Exam Extremities Exam: Pedal Edema Assessment and Plan (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
--- NOTE | 2016-12-17 22:11 | CP.PCM.PN ---
Subjective - Date & Time of Evaluation Date of Evaluation: 12/14/16 Time of Evaluation: 12:00 - Subjective Subjective: No complaints. Objective - Vital Signs/Intake and Output Vital Signs (last 24 hours): Temp Pulse Resp BP Pulse Ox 97.3 F L 62 20 93/57 L 98 12/17/16 16:00 12/17/16 16:00 12/17/16 16:00 12/17/16 16:00 12/17/16 16:00 Intake and Output: 12/17/16 12/18/16 18:59 06:59 Intake Total 469.2 Balance 469.2 - Medications Medications: Current Medications Acetaminophen (Tylenol 325mg Tab) 650 mg PO Q6 PRN PRN Reason: Pain, moderate (4-7) Last Admin: 12/09/16 06:28 Dose: 650 mg - Labs Labs: 12/14/16 07:14 12/14/16 07:14 PT 25.6 SECONDS (9.7-12.2) H D 12/17/16 07:54 INR 2.2 12/17/16 07:54 APTT 92 SECONDS (21-34) H D 12/17/16 07:54 - Head Exam Head Exam: ATRAUMATIC - Eye Exam Eye Exam: Normal appearance - ENT Exam ENT Exam: Mucous Membranes Dry - Respiratory Exam Respiratory Exam: NORMAL BREATHING PATTERN - Cardiovascular Exam Cardiovascular Exam: +S1, +S2 - GI/Abdominal Exam GI & Abdominal Exam: Normal Bowel Sounds - Extremities Exam Extremities Exam: Pedal Edema Assessment and Plan (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
--- NOTE | 2016-12-17 22:15 | CP.PCM.PN ---
Subjective - Date & Time of Evaluation Date of Evaluation: 12/15/16 Time of Evaluation: 13:00 - Subjective Subjective: No complaints. Objective - Vital Signs/Intake and Output Vital Signs (last 24 hours): Temp Pulse Resp BP Pulse Ox 97.3 F L 62 20 93/57 L 98 12/17/16 16:00 12/17/16 16:00 12/17/16 16:00 12/17/16 16:00 12/17/16 16:00 Intake and Output: 12/17/16 12/18/16 18:59 06:59 Intake Total 469.2 Balance 469.2 - Medications Medications: Current Medications Acetaminophen (Tylenol 325mg Tab) 650 mg PO Q6 PRN PRN Reason: Pain, moderate (4-7) Last Admin: 12/09/16 06:28 Dose: 650 mg - Labs Labs: 12/14/16 07:14 12/14/16 07:14 PT 25.6 SECONDS (9.7-12.2) H D 12/17/16 07:54 INR 2.2 12/17/16 07:54 APTT 92 SECONDS (21-34) H D 12/17/16 07:54 - Head Exam Head Exam: ATRAUMATIC - Eye Exam Eye Exam: Normal appearance - ENT Exam ENT Exam: Mucous Membranes Dry - Respiratory Exam Respiratory Exam: NORMAL BREATHING PATTERN - Cardiovascular Exam Cardiovascular Exam: +S1, +S2 - GI/Abdominal Exam GI & Abdominal Exam: Normal Bowel Sounds - Extremities Exam Extremities Exam: Pedal Edema Assessment and Plan (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
--- NOTE | 2016-12-17 22:18 | CP.PCM.PN ---
Subjective - Date & Time of Evaluation Date of Evaluation: 12/16/16 Time of Evaluation: 17:00 - Subjective Subjective: No complaints. Objective - Vital Signs/Intake and Output Vital Signs (last 24 hours): Temp Pulse Resp BP Pulse Ox 97.3 F L 62 20 93/57 L 98 12/17/16 16:00 12/17/16 16:00 12/17/16 16:00 12/17/16 16:00 12/17/16 16:00 Intake and Output: 12/17/16 12/18/16 18:59 06:59 Intake Total 469.2 Balance 469.2 - Medications Medications: Current Medications Acetaminophen (Tylenol 325mg Tab) 650 mg PO Q6 PRN PRN Reason: Pain, moderate (4-7) Last Admin: 12/09/16 06:28 Dose: 650 mg - Labs Labs: 12/14/16 07:14 12/14/16 07:14 PT 25.6 SECONDS (9.7-12.2) H D 12/17/16 07:54 INR 2.2 12/17/16 07:54 APTT 92 SECONDS (21-34) H D 12/17/16 07:54 - Head Exam Head Exam: ATRAUMATIC - Eye Exam Eye Exam: Normal appearance - ENT Exam ENT Exam: Mucous Membranes Dry - Respiratory Exam Respiratory Exam: NORMAL BREATHING PATTERN - Cardiovascular Exam Cardiovascular Exam: +S1, +S2 - GI/Abdominal Exam GI & Abdominal Exam: Normal Bowel Sounds - Extremities Exam Extremities Exam: Pedal Edema Assessment and Plan (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
[2016-12-18 07:27] LABS: INR 2.2
[2016-12-18 08:22] VITALS: BP 116/83; PULSE 64; RESP 20; TEMP 97.8; O2SAT 97
--- NOTE | 2016-12-18 11:45 | CP.PCM.DIS ---
Provider - Provider Date of Admission: 12/07/16 11:57 Attending physician: Annita Todd MD Time Spent in preparation of Discharge (in minutes): 35 Hospital Course - Lab Results Lab Results: Most Recent Lab Values WBC 5.8 K/uL (4.8-10.8) 12/14/16 07:14 RBC 4.61 Mil/uL (4.40-5.90) 12/14/16 07:14 Hgb 15.3 g/dL (12.0-18.0) 12/14/16 07:14 Hct 43.5 % (35.0-51.0) 12/14/16 07:14 MCV 94.5 fL (80.0-94.0) H 12/14/16 07:14 MCH 33.3 pg (27.0-31.0) H 12/14/16 07:14 MCHC 35.2 g/dL (33.0-37.0) 12/14/16 07:14 RDW 13.0 % (11.5-14.5) 12/14/16 07:14 Plt Count 332 K/uL (130-400) D 12/14/16 07:14 MPV 7.4 fL (7.2-11.7) 12/14/16 07:14 Neut % (Auto) 44.5 % (50.0-75.0) L 12/14/16 07:14 Lymph % (Auto) 36.1 % (20.0-40.0) 12/14/16 07:14 [place] % (Auto) 11.2 % (0.0-10.0) H 12/14/16 07:14 Eos % (Auto) 5.5 % (0.0-4.0) H 12/14/16 07:14 Baso % (Auto) 2.7 % (0.0-2.0) H 12/14/16 07:14 Neut # 2.6 K/uL (1.8-7.0) 12/14/16 07:14 Lymph # 2.1 K/uL (1.0-4.3) 12/14/16 07:14 [place] # 0.7 K/uL (0.0-0.8) 12/14/16 07:14 Eos # 0.3 K/uL (0.0-0.7) 12/14/16 07:14 Baso # 0.2 K/uL (0.0-0.2) 12/14/16 07:14 PT 25.6 SECONDS (9.7-12.2) H 12/18/16 07:06 INR 2.2 12/18/16 07:06 APTT 92 SECONDS (21-34) H D 12/17/16 07:54 Factor V see note 12/08/16 13:39 Sodium 135 mmol/L (132-148) 12/14/16 07:14 Potassium 4.6 mmol/L (3.6-5.2) 12/14/16 07:14 Chloride 98 mmol/L (98-107) 12/14/16 07:14 Carbon Dioxide 27 mmol/L (22-30) 12/14/16 07:14 Anion Gap 15 (10-20) 12/14/16 07:14 BUN 16 mg/dL (9-20) 12/14/16 07:14 Creatinine 0.9 mg/dL (0.8-1.5) 12/14/16 07:14 Est GFR ( Amer) > 60 12/14/16 07:14 Est GFR (Non-Af Amer) > 60 12/14/16 07:14 Random Glucose 88 mg/dL (75-110) 12/14/16 07:14 Calcium 9.4 mg/dl (8.6-10.4) 12/14/16 07:14 Total Bilirubin 0.9 mg/dL (0.2-1.3) 12/07/16 09:22 AST 33 U/L (17-59) 12/07/16 09:22 ALT 54 U/L (21-72) 12/07/16 09:22 Alkaline Phosphatase 50 U/L (38-126) 12/07/16 09:22 Total Protein 7.1 g/dL (6.3-8.3) 12/07/16 09:22 Albumin 4.0 g/dL (3.5-5.0) 12/07/16 09:22 Globulin 3.1 gm/dL (2.2-3.9) 12/07/16 09:22 Albumin/Globulin Ratio 1.3 (1.0-2.1) 12/07/16 09:22 Urine Color Vivian (YELLOW) 12/07/16 09:26 Urine Clarity Clear (Clear) 12/07/16 09:26 Urine pH 5.0 (5.0-8.0) 12/07/16 09:26 Ur Specific [place] 1.032 (1.003-1.030) H 12/07/16 09:26 Urine Protein 1+ mg/dL (NEGATIVE) H 12/07/16 09:26 Urine Glucose (UA) Normal mg/dL (Normal) 12/07/16 09:26 Urine Ketones Trace mg/dL (NEGATIVE) 12/07/16 09:26 Urine Blood Negative (NEGATIVE) 12/07/16 09:26 Urine Nitrate Negative (NEGATIVE) 12/07/16 09:26 Urine Bilirubin 1+ (NEGATIVE) H 12/07/16 09:26 Urine Urobilinogen 4.0 mg/dL (0.2-1.0) 12/07/16 09:26 Ur Leukocyte Esterase Neg Claudia/uL (Negative) 12/07/16 09:26 Urine WBC (Auto) < 1 /hpf (0-5) 12/07/16 09:26 Urine RBC (Auto) 6 /hpf (0-3) H 12/07/16 09:26 [id number] Ab <9 ELIEZER (<=20) 12/08/16 13:39 Beta-2 GPI IgG Ab <9 SGU (<=20) 12/08/16 13:39 Beta-2 GPI IgM Ab <9 SMU (<=20) 12/08/16 13:39 Phosphatidylserine IgG <10 U/mL (<10) 12/08/16 13:39 Phosphatidylserine IgA <20 U/mL (<20) 12/08/16 13:39 Phosphatidylserine IgM <25 U/mL (<25) 12/08/16 13:39 Anti-Phospholipid Intrp see note 12/08/16 13:39 Anti-Cardiolipin IgG Ab <14 GPL (<=14) 12/08/16 13:39 Anti-Cardiolipin IgA Ab <11 APL (<=11) 12/08/16 13:39 Anti-Cardiolipin IgM Ab <12 MPL (<=12) 12/08/16 13:39 Prothrombin Mut Interp see note 12/08/16 14:25 Prothrombin Gene Mutate see note 12/08/16 14:25 Prothromb Gene Review see note 12/08/16 14:25 - Hospital Course Hospital Course: 46 y/o male with Hx of DVT presents to ed with complaints of "deep" pain to half of left leg since yesterday morning. Patient states x3 years ago he had DVT to same leg and was on Coumadin but was taken off and denies currently taking blood thinners. Patient denies recent injury, numbness, weakness or any other complaints at this time. DOPPLER STUDIES WERE POS WERE EXTENSIVE CLOT IN LEFT LEG HEPARIN WAS STARTED AND FEW DAYS WITH OVERLAP OF COUMADIN HEPARIN WAS D/C WITH COUMADIN 6MG INR 2.2 PT REFUSED TO GET NOAC HEM WAS CALLED TO R/O COAGULOPATHY ALL W/U WAS NEG PT WAS STRONGLY ADVISED THAT HE WILL NEED COUMADIN FOR LIFE PT PREVIOUSLY HAD D/[facility] COUMADIN AFTER FEW MONTHS PT HAS PMD , WILL F/U INR Discharge Exam - Head Exam Head Exam: ATRAUMATIC Discharge Plan - Follow Up Plan Condition: FAIR Disposition: HOME/ ROUTINE
--- NOTE | 2016-12-18 12:49 | CP.PCM.PN ---
Subjective - Date & Time of Evaluation Date of Evaluation: 12/18/16 Time of Evaluation: 12:46 - Subjective Subjective: patient clear for DC per Dr Todd ...Rx given to continue coumadin 6mg PO daily and prescription for INR on monday 12/25 at PMD office DC plan and follow up discuss with patient and all questions answered no further orders Objective - Vital Signs/Intake and Output Vital Signs (last 24 hours): Temp Pulse Resp BP Pulse Ox 97.8 F 64 20 116/83 97 12/18/16 08:21 12/18/16 08:21 12/18/16 08:21 12/18/16 08:21 12/18/16 08:21 Intake and Output: 12/18/16 12/18/16 06:59 18:59 Intake Total 690 Balance 690 - Medications Medications: Current Medications Acetaminophen (Tylenol 325mg Tab) 650 mg PO Q6 PRN PRN Reason: Pain, moderate (4-7) Last Admin: 12/09/16 06:28 Dose: 650 mg - Labs Labs: 12/14/16 07:14 12/14/16 07:14 PT 25.6 SECONDS (9.7-12.2) H 12/18/16 07:06 INR 2.2 12/18/16 07:06 APTT 92 SECONDS (21-34) H D 12/17/16 07:54
[2016-12-18] MEDS ORDERED: Pneumococcal 23-Valent Vaccine IM ONE (13:40)
[2016-12-18] MEDS ORDERED: Influenza Vaccine 60 mcg/0.5 mL SYR (4YR UP) IM ONE (13:40)
== END 2016-12-18 14:19 | disposition home or self-care (01) | DRG 131 ==
LOC: C.ER 08:06 → C.9E 11:57 → C.3T 12:21
PROVIDERS: ADMIT Internal Medicine Cardiovascular Disease; ATTEND Internal Medicine Cardiovascular Disease
DX: I82.412 Acute embolism and thrombosis of left femoral vein (principal); F17.210 Nicotine dependence, cigarettes, uncomplicated; Z79.01 Long term (current) use of anticoagulants

== ENCOUNTER 2017-12-18 04:49 | Emergency (ER) | payer OTHER, MEDICAID ==
[2017-12-18 05:19] VITALS: RESP 20; TEMP 98.5
--- NOTE | 2017-12-18 05:19 | C.PDOC ---
Time Seen by Provider: 12/18/17 05:18 Chief Complaint (Nursing): Lower Extremity Problem/Injury Past Medical History Vital Signs: Last Vital Signs Temp 98.5 F 12/18/17 04:56 Pulse 117 H 12/18/17 04:56 Resp 20 12/18/17 04:56 BP 138/82 12/18/17 04:56 Pulse Ox 97 12/18/17 04:56 - Medical History PMH: Depression, Deep Vein Thrombosis - Social History Hx Alcohol Use: Yes Hx Substance Use: No - Immunization History Hx Tetanus Toxoid Vaccination: No Hx Influenza Vaccination: No Hx Pneumococcal Vaccination: No ED Course And Treatment O2 Sat by Pulse Oximetry: 97 Disposition Counseled Patient/Family Regarding: Studies Performed, Diagnosis - Disposition Disposition Time: 05:19
--- NOTE | 2017-12-18 05:38 | C.PDOC ---
History Of Present Illness 47 yo male w/PMHx of Lt lower leg DVT, non-compliant with medication for 8-9 months, come in for evaluation of Let knee pain developed hour [employer]. Pt reports, " was walking up stairs when have heard some pop in my Left knee". Pt reports, pain is localized over Left knee, worse with weight bearing. Otherwise, pt denies fall, CP, SOB, dyspnea, cough, denies deformity, weakness, sensory or vascular deficits to Left leg. Ambulate to ED. Time Seen by Provider: 12/18/17 05:18 Chief Complaint (Nursing): Lower Extremity Problem/Injury History Per: Patient Past Medical History Reviewed: Historical Data, Nursing Documentation, Vital Signs Vital Signs: Last Vital Signs Temp 98.5 F 12/18/17 04:56 Pulse 117 H 12/18/17 04:56 Resp 20 12/18/17 04:56 BP 138/82 12/18/17 04:56 Pulse Ox 97 12/18/17 05:19 - Medical History PMH: Depression, Deep Vein Thrombosis Family History: States: No Known Family Hx - Social History Hx Tobacco Use: Yes Hx Alcohol Use: Yes Hx Substance Use: No - Immunization History Hx Tetanus Toxoid Vaccination: No Hx Influenza Vaccination: No Hx Pneumococcal Vaccination: No Review Of Systems Except As Marked, All Systems Reviewed And Found Negative. ENT: Negative for: Throat Pain, Throat Swelling Cardiovascular: Negative for: Chest Pain, Palpitations, Orthopnea Respiratory: Negative for: Cough, Shortness of Breath, Wheezing Gastrointestinal: Negative for: Nausea, Vomiting, Abdominal Pain, Diarrhea Genitourinary: Negative for: Incontinence Musculoskeletal: Positive for: Other (Left knee) Skin: Negative for: Rash, Bruising Neurological: Negative for: Weakness, Numbness Physical Exam - Physical Exam Appears: Well, Non-toxic, No Acute Distress Skin: Normal Color, Warm, Dry, No Ecchymosis Head: Atraumatic, Normacephalic Eye(s): bilateral: PERRL Nose: No Flaring Oral Mucosa: Other ((+) some alcohol odor) Neck: Normal ROM, Supple Respiratory: No Decreased Breath Sounds, No Accessory Muscle Use, No Stridor, No Wheezing Extremity: Normal ROM (mild discomfort to Left knee flexion due to pain), Tenderness (mild over anterior aspect left knee, mild edema. No erythema, no palpable deformity.), No Calf Tenderness (B/L), No Deformity Neurological/Psych: Oriented x3, Normal Speech, Normal Motor, Normal Sensation, Normal Reflexes ED Course And Treatment O2 Sat by Pulse Oximetry: 97 - Other Rad Left knee X-Ray: Interpreted by Me, Viewed By Me Interpretation: (+) mod DJD, no acute fx or dislocation Progress Note: On re-eval, pt is febrile, hemodynamicaly stable. Non-toxic. PulsEOx 97% RA. neck: Supple. Lungs: CTA B/L, BS equal B/L. left knee: mild tenderness anterior aspect left knee, mild discomfort to Right knee flexion. No defomrity, no erythema, no calf tenderness. NO neurovascular deficits distally. Imaging review (+) DKD of Left knee, no acute fx or disloctaion. Knee immobilizaer applied, crutches provided. Pt has hx of Left LE DVT, non- compliant with medication for 8-9 months, denies CP, SOB, dyspnea, palpiation or other sx relaited to PE. Pt was offere dtx for DVT now-refused, will F/u with PMD. Pt advised and ref. to f/u with PMD, othro in 1- 2 days for re-eval. return to ED if nay worsening or new changes. Pt understand and agrees with d/c. Disposition Counseled Patient/Family Regarding: Studies Performed, Diagnosis, Need For Followup, Rx Given - Disposition Referrals: Will Lazo MD [Staff Provider] - [facility] [Outside] Disposition: HOME/ ROUTINE Disposition Time: 05:51 Condition: STABLE Additional Instructions: Knee immobilizer for 1-2 weeks Light duty to left knee follow up with PMD in 1-2 days for blood thinner medication renew and orthopedist for further evaluation of Left knee pain. return to ED if any worsening or new changes. Prescriptions: Prednisone [Deltasone] 20 mg PO DAILY #3 tablet Instructions: Knee Sprain (DC), Phlebitis (DC) Forms: [employer] ([employer]) - Clinical Impression Clinical Impression: Deep venous thrombosis of lower extremity, Knee sprain
[2017-12-18] MEDS ORDERED: Enoxaparin 40 mg Syringe SC STA (06:11)
[2017-12-18 06:47] VITALS: BP 124/74; PULSE 84; O2SAT 100
--- NOTE | 2017-12-18 07:59 | RAD ---
Date of service: 12/18/2017 PROCEDURE: Left Knee Radiographs. HISTORY: Pain. COMPARISON: None. FINDINGS: BONES: No fracture. Spurring present JOINTS: Tricompartmental osteoarthrosis JOINT EFFUSION: None. OTHER FINDINGS: None. IMPRESSION: No fracture or lytic lesion. 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
== END 2017-12-18 06:47 | disposition home or self-care (01) ==
LOC: C.ER 04:49
DX: S83.92XA Sprain of unspecified site of left knee, initial encounter (principal); X58.XXXA Exposure to other specified factors, initial encounter; I82.402 Acute embolism and thrombosis of unspecified deep veins of left lower extremity; Z91.14 Patient's other noncompliance with medication regimen
CPT/HCPCS: 73562; 96372; 99284; J1650